=== PATIENT | female | born 1985 ===

== ENCOUNTER 2019-11-14 07:02 | Day surgery (SDC) | payer BC ==
[~2019-11-14 07:02] MED LIST: Lactated Ringers 1,000 ML IV SCH; Lidocaine 1%/Sod Bicarbonate in NS 8.4% 1 ML Syringe IDERM PRN; Sodium Chloride 0.9% 10 ML Syringe FLUSH PRN
--- NOTE | 2019-11-14 08:36 | PCM.PREANE ---
Preanesthetic Assessment - Anesthesia/Transfusion/Family Hx Anesthesia History: Prior Anesthesia Without Reaction - Review of Systems General: No Symptoms Pulmonary: No Symptoms Cardiovascular: No Symptoms Gastrointestinal: No Symptoms Neurological: No Symptoms Other: Reports: Depression, Anxiety - Physical Assessment NPO Status Date: 11/13/19 NPO Status Time: 22:00 Vital Signs: Last Vital Signs Temp 98.9 F 11/14/19 07:00 Pulse 78 11/14/19 07:00 Resp 16 11/14/19 07:00 BP 129/70 11/14/19 07:00 Pulse Ox 98 11/14/19 07:00 Height: 1.57 m Weight: 87.09 kg ASA Class: 2 Mental Status: Alert & Oriented x3 Airway Class: Mallampati = 3 Dentition: Reports: Normal Dentition, Dandridge(s) Thyro-Mental Finger Breadths: 3 Mouth Opening Finger Breadths: 3 ROM/Head Extension: Full Lungs: Clear to Auscultation, Normal Respiratory Effort Cardiovascular: Regular Rate, Regular Rhythm - Lab Values: Laboratory Last Values WBC 9.37 K/mm3 (3.98-10.04) 11/14/19 07:18 RBC 4.97 M/mm3 (3.98-5.22) 11/14/19 07:18 Hgb 12.8 gm/dl (11.2-15.7) 11/14/19 07:18 Hct 39.3 % (34.1-44.9) 11/14/19 07:18 MCV 79.1 fl (79.4-94.8) L 11/14/19 07:18 MCH 25.8 pg (25.6-32.2) 11/14/19 07:18 MCHC 32.6 g/dl (32.2-35.5) 11/14/19 07:18 RDW Std Deviation 39.8 fL (36.4-46.3) 11/14/19 07:18 Plt Count 308 K/mm3 (182-369) 11/14/19 07:18 MPV 9.9 fl (9.4-12.3) 11/14/19 07:18 Neut % (Auto) 58.4 % (34.0-71.1) 11/14/19 07:18 Lymph % (Auto) 30.8 % (19.3-51.7) 11/14/19 07:18 Bureau % (Auto) 7.2 % (4.7-12.5) 11/14/19 07:18 Eos % (Auto) 2.9 (0.7-5.8) 11/14/19 07:18 Baso % (Auto) 0.5 % (0.1-1.2) 11/14/19 07:18 Neut # (Auto) 5.47 K/mm3 (1.56-6.13) 11/14/19 07:18 Lymph # (Auto) 2.89 K/mm3 (1.18-3.74) 11/14/19 07:18 Bureau # (Auto) 0.67 K/mm3 (0.24-0.36) H 11/14/19 07:18 Eos # (Auto) 0.27 K/mm3 (0.04-0.36) 11/14/19 07:18 Baso # (Auto) 0.05 K/mm3 (0.01-0.08) 11/14/19 07:18 HCG, Quant < 1.0 mIU/mL 11/14/19 07:18 - Allergies Allergies/Adverse Reactions: Allergies Allergy/AdvReac Type Severity Reaction Status Date / Time No Known Allergies Allergy Verified 11/14/19 07:37 - Acknowledgements Anesthesia Type Planned: General Anesthesia Pt an Appropriate Candidate for the Planned Anesthesia: Yes Alternatives and Risks of Anesthesia Discussed w Pt/Guardian: Yes Pt/Guardian Understands and Agrees with Anesthesia Plan: Yes PreAnesthesia Questionnaire HEENT History: Reports: Impaired Vision Cardiovascular History: Reports: High Cholesterol, Hypertension Respiratory History: Reports: Asthma (in childhood, no attacks >10 yrs) Gastrointestinal History: Reports: GERD Genitourinary History: Reports: UTI, Recurrent, Other (See Below) Other Genitourinary History: dysuria [employer] History: Reports: Other (See Below) Other OB/BYN History: dysmenorrhea, menorrhagia, vaginal discharge Musculoskeletal History: Reports: Other (See Below) Other Musculoskeletal History: muscle strain, neck pain Neurological History: Reports: None Psychiatric History: Reports: Anxiety, Depression Endocrine/Metabolic History: Reports: Obesity/BMI 30+ Hematologic History: Reports: None Immunologic History: Reports: None Oncologic (Cancer) History: Reports: None Dermatologic History: Reports: Other (See Below) Other Dermatologic History: acne, cellulitis, prurtitis, rash, scalp cyst - Past Surgical History Head Surgeries/Procedures: Reports: None Cardiovascular Surgical History: Reports: None Respiratory Surgical History: Reports: None GI Surgical History: Reports: Appendectomy, Cholecystectomy Female Surgical History: Reports: Section, Tubal Ligation Male Surgical History: Reports: None Endocrine Surgical History: Reports: None Neurological Surgical History: Reports: None Musculoskeletal Surgical History: Reports: None Oncologic Surgical History: Reports: None - SUBSTANCE USE Smoking Status *Q: Current Some Day Smoker Recreational Drug Use History: No - HOME MEDS Home Medications: Home Meds Cholecalciferol (Vitamin D3) [Vitamin D3] 1,000 unit PO DAILY 11/13/19 [History] Clindamycin Phos/Benzoyl Perox [Clinda-Benzoyl Perox 1-5% Pump] 1 dose TOP BID 11/13/19 [History] Cyclobenzaprine [Flexeril] 10 mg PO TID PRN 11/13/19 [History] DULoxetine [Cymbalta] 60 mg PO DAILY 11/13/19 [History] Ondansetron [Zofran ODT] 4 mg PO Q4H PRN 11/13/19 [History] lisinopriL [Lisinopril] 30 mg PO DAILY 11/13/19 [History] - CURRENT (IN HOUSE) MEDS Current Meds: Current Medications Lactated Ringer's (Ringers, Lactated) 1,000 mls @ 125 mls/hr IV ASDIRECTED CANDE Stop: 11/14/19 23:00 Last Admin: 11/14/19 07:16 Dose: 125 mls/hr Documented by: Lidocaine/Sodium Bicarbonate (Buffered Lidocaine 1% In Ns 8.4%) 0.25 ml IDERM ONETIME PRN PRN Reason: Prior to IV Start Stop: 11/14/19 18:00 Last Admin: 11/14/19 07:16 Dose: 0.25 ml Documented by: Sodium Chloride (Saline Flush) 10 ml FLUSH ASDIRECTED PRN PRN Reason: Keep Vein Open Stop: 11/14/19 18:00
[2019-11-14] MEDS ORDERED: Midazolam 1 MG/ML 2 ML SDV ONE (08:40)
[2019-11-14] MEDS ORDERED: Propofol 200 MG/20 ML SDV ONE (08:40)
[2019-11-14] MEDS ORDERED: fentaNYL 100 MCG/2 ML SDV ONE (08:40)
[2019-11-14] MEDS ORDERED: Lidocaine 1% 4 ML ONE (08:42)
[2019-11-14] MEDS ORDERED: ceFAZolin 1 GM Vial ONE (09:05)
[2019-11-14] MEDS ORDERED: Ondansetron 4 MG/2 ML SDV ONE (09:09)
[2019-11-14] MEDS ORDERED: Ketorolac 30 MG/ML SDV ONE (09:18)
[2019-11-14] MEDS ORDERED: HYDROmorphone 0.5 MG/0.5 ML Syringe IVPUSH PRN (09:18)
[2019-11-14] MEDS ORDERED: fentaNYL 100 MCG/2 ML SDV IVPUSH PRN (09:18)
[2019-11-14] MEDS ORDERED: Dexamethasone 4 MG/ML 5 ML MDV ONE (09:21)
--- NOTE | 2019-11-14 09:51 | PCM.OPNOTE ---
- General Post-Op/Procedure Note Date of Surgery/Procedure: 11/14/19 Operative Procedure(s): D&C with hysteroscopy and endometrial ablation Pre Op Diagnosis: Menorrhagia, dysmenorrhea Post-Op Diagnosis: Same Anesthesia Technique: General LMA Primary Surgeon: Khai Esposito Anesthesia Provider: Dallas Ryder Log Turner: Kylee Al (PAS) Log Turner: Dann Garcia (MS III) Fluid Replacement, Intraop: 1,000 Output, Urine Amount: 240 EBL in mLs: 5 Drain/Tube Comments:: None Complications: None Condition: Good Free Text/Narrative:: Patient was transported to operating room #5 and placed under general anesthesia with LMA mask in the low dorsolithotomy position. CDs in place and functioning prior to surgery. Ancef 2 g given intravenously without untoward effects. Patient was prepared and draped in a sterile fashion. Bladder was emptied with straight catheter obtaining 240 mL of urine. The uterus was grasped at the anterior lip with an Allis clamp and sounded 9 cm total with depth of uterus from internal cervical os 6.5 cm. Uroscopy was performed no polyps seen. Dilatation curettage performed obtaining approximately 1-1/2 to 2 mL of tissue which was sent to pathology for tissue evaluation. The NovaSure ablation instrument was then inserted into the endometrial cavity and splayed out to cover the entire endometrial cavity. Length 6.5 with 3.0 integrity test was performed and showed no leaking of air or fluid. Was performed for 65 seconds power 107. Reevaluation of endometrial cavity after ablation showed good charring.'s were correct. Patient transported to postanesthesia care unit in satisfactory condition. No blood transfusions required and none anticipated. I have visited with her and gave him a report of the procedure and all questions answered to his voiced satisfaction. Patient will use Tylenol Motrin for pain at home she did receive Toradol postoperatively no Motrin for 6 hours (1600 hrs.) Patient has appointment to see me for follow-up in 2 weeks.
--- NOTE | 2019-11-14 09:53 | PCM.POSTAN ---
POST ANESTHESIA ASSESSMENT - MENTAL STATUS Mental Status: Somnolent - VITAL SIGNS Vital Signs: Last Vital Signs Temp 97.6 F 11/14/19 09:47 Pulse 78 11/14/19 07:00 Resp 13 11/14/19 09:47 BP 136/99 H 11/14/19 09:47 Pulse Ox 99 11/14/19 09:47 - RESPIRATORY Respiratory Status: Respiratory Rate WNL, Airway Patent (Nasal trumpet #32 right Nare), O2 Saturation Stable, Supplemental Oxygen - CARDIOVASCULAR CV Status: Pulse Rate WNL, Blood Pressure Stable - GASTROINTESTINAL GI Status: No Symptoms - PAIN Pain Score: 0 - POST OP HYDRATION Hydration Status: Adequate & Stable
--- NOTE | 2019-11-14 12:31 | PCM48HPAN ---
Post Anesthesia Note - EVALUATION WITHIN 48HRS OF ANESTHETIC Vital Signs in Normal Range: Yes Patient Participated in Evaluation: Yes Respiratory Function Stable: Yes Airway Patent: Yes Cardiovascular Function Stable: Yes Hydration Status Stable: Yes Pain Control Satisfactory: Yes Nausea and Vomiting Control Satisfactory: Yes Mental Status Recovered: Yes Vital Signs: Last Vital Signs Temp 98 F 11/14/19 11:00 Pulse 79 11/14/19 11:07 Resp 16 11/14/19 11:30 BP 133/101 H 11/14/19 11:30 Pulse Ox 98 11/14/19 11:30 - COMMENTS/OBSERVATIONS Free Text/Narrative:: No anesthesia complications. Planning discharge home.
== END 2019-11-14 12:07 | disposition home or self-care (01) ==
LOC: JD.SDS 07:02
PROVIDERS: ATTEND Obstetrics & Gynecology
DX: N92.0 Excessive and frequent menstruation with regular cycle (principal); N94.6 Dysmenorrhea, unspecified; I10 Essential (primary) hypertension; F41.9 Anxiety disorder, unspecified; K21.9 Gastro-esophageal reflux disease without esophagitis; F32.9 Major depressive disorder, single episode, unspecified; J45.909 Unspecified asthma, uncomplicated; E78.00 Pure hypercholesterolemia, unspecified; E66.9 Obesity, unspecified; Z79.2 Long term (current) use of antibiotics; Z79.899 Other long term (current) drug therapy; Z88.8 Allergy status to other drugs, medicaments and biological substances; Z98.51 Tubal ligation status; Z87.891 Personal history of nicotine dependence; Z68.35 Body mass index [BMI] 35.0-35.9, adult; Z90.89 Acquired absence of other organs; Z90.49 Acquired absence of other specified parts of digestive tract
CPT/HCPCS: 36415; 58563; 84702; 85025; 86850; 86900; 86901; J0690; J1100; J1170; J1885; J2001; J2250; J2405; J2704; J3010; J7120; 00952